=== PATIENT | female | born 1955 | race Caucasian/White ===

== ENCOUNTER → 2018-04-09 13:20 | Outpatient (CLI) | payer OTHER, SELFPAY ==
--- NOTE | 2018-04-09 13:25 | DI.MG.S_ITS ---
BILATERAL DIGITAL SCREENING MAMMOGRAM 3D/2D WITH CAD: 04/09/2018 CLINICAL: Routine screening. Comparison is made to exam dated: 09/26/2006 [facility]. There are scattered fibroglandular elements in both breasts. Current study was also evaluated with a Computer Aided Detection (CAD) system. No significant masses, calcifications, or other findings are seen in either breast. There has been no significant interval change. IMPRESSION: NEGATIVE There is no mammographic evidence of malignancy. A 1 year screening mammogram is recommended. This exam was interpreted at Station ID: [id number]. NOTE: For mammograms, a report in lay terms will be sent to the patient. Approximately 15% of breast malignancies will not be visualized mammographically. In the management of a palpable breast mass, a negative mammogram must not discourage biopsy of a clinically suspicious lesion. Electronically Signed By: Osvaldo rosas/nicole:04/09/2018 17:33:06 letter sent: Normal Exam ACR BI-RADS Category 1: Negative [id number]
== END ==
PROVIDERS: Visit Provider Nurse Practitioner Family
DX: Z12.31 Encounter for screening mammogram for malignant neoplasm of breast (principal)
CPT/HCPCS: 77063; 77067

== ENCOUNTER → 2019-01-17 09:04 | Outpatient (CLI) | payer OTHER, SELFPAY ==
[2019-01-17 09:41] LABS: Add Manual Diff / Slide Review NO; Basophils Absolute Auto 0 /uL (0-100); Basophils Percent Auto 0.7 % (0-2); Eosinophils Absolute Auto 100 /uL (0-450); Eosinophils Percent Auto 1.4 % (2-4); Hematocrit 42.1 % (36-46); Hemoglobin 14.2 g/dL (12.0-16.0); Lymphocytes Absolute Auto 1500 /uL (1100-4500); Lymphocytes Percent Auto 21.1 % (25-40); Mean Corpuscular HGB Conc 33.7 % (30-36); Monocytes Absolute Auto 500 /uL (0-900); Monocytes Percent Auto 7.1 % (3-14); Neutrophils Absolute Auto 4900 /uL (1500-7000); Neutrophils Percent Auto 69.7 % (50-75); Platelet Count 200 X10^3/uL (150-400); Red Blood Cell Count 4.74 X10^6/uL (4.0-5.2); Red Cell Distribution Width 13.3 % (11.6-14.8)
[2019-01-17 09:49] LABS: Alanine Aminotransferase 15 IU/L (<35); Albumin 4.7 g/dL (3.5-5.0); Albumin Globulin Ratio 1.9 (1.0-2.8); Alkaline Phosphatase 58 U/L (38-126); Aspartate Aminotransferase 20 IU/L (14-36); BUN Creatinine Ratio 15.6 (6-22); Bilirubin Total 1.6 mg/dL (0.2-1.3); Blood Urea Nitrogen 14 mg/dL (7-17); Calcium 9.4 mg/dL (8.4-10.2); Carbon Dioxide 29 mmol/L (22-32); Chloride 104 mmol/L (98-107); Estimated Glomerular Filt Rate > 60.0 mL/min (>60); Globulin 2.5 g/dL (1.7-4.1); Glucose 97 mg/dL (80-110); HEMOLYSIS < 15 (0-50); Potassium 4.1 mmol/L (3.4-5.1); Sodium 142 mmol/L (137-145); Total Protein 7.2 g/dL (6.3-8.2)
[2019-01-17 10:38] LABS: Thyroid Stimulating Hormone 1.14 uIU/mL (0.47-4.68)
== END ==
PROVIDERS: Visit Provider Psychiatry & Neurology Psychiatry
DX: F20.0 Paranoid schizophrenia (principal)
CPT/HCPCS: 36415; 80053; 84439; 84443; 85025

== ENCOUNTER → 2022-05-20 08:40 | Outpatient (CLI) | payer MEDICARE, OTHER, SELFPAY ==
[2022-05-20 10:02] LABS: Lithium < 0.2 mmol/L (0.6-1.2)
== END ==
PROVIDERS: PCP Family Medicine; Referring Provider Psychiatry & Neurology Psychiatry; Visit Provider Psychiatry & Neurology Psychiatry
DX: F20.0 Paranoid schizophrenia (principal); Z79.899 Other long term (current) drug therapy
CPT/HCPCS: 36415; 80178

== ENCOUNTER → 2022-08-10 14:46 | Outpatient (CLI) | payer MEDICARE, OTHER, SELFPAY ==
--- NOTE | 2022-08-10 14:48 | DI.RAD.S_ITS ---
PROCEDURE: XR CHEST 2V INDICATIONS: Cough x 11 days with dyspnea TECHNIQUE: 2 views of the chest were acquired. COMPARISON: None. FINDINGS: Surgical changes and devices: None. Lungs and pleura: Lungs are clear. No pleural effusions or pneumothorax. Mediastinum: Mediastinal contours are normal. Heart size is normal. Bones and chest wall: No suspicious bony abnormalities. Soft tissues appear unremarkable. IMPRESSION: No acute cardiopulmonary process. Dictated by: Torsten Brandon M.D. on 08/10/2022 at 15:05 Approved by: Torsten Brandon M.D. on 08/10/2022 at 15:06
== END ==
PROVIDERS: PCP Family Medicine; Referring Provider Physician Assistant; Visit Provider Physician Assistant
DX: R05.9 Cough, unspecified (principal)
CPT/HCPCS: 71046

== ENCOUNTER → 2023-02-23 07:45 | Outpatient (CLI) | payer MEDICARE, OTHER, SELFPAY ==
[2023-02-23 10:19] LABS: Alanine Aminotransferase 27 IU/L (<35); Albumin 4.2 g/dL (3.5-5.0); Albumin Globulin Ratio 1.5 (1.0-2.8); Alkaline Phosphatase 80 U/L (38-126); Aspartate Aminotransferase 27 IU/L (14-36); Bilirubin Total 0.9 mg/dL (0.2-1.3); Blood Urea Nitrogen 19 mg/dL (7-17); Calcium 9.2 mg/dL (8.4-10.2); Carbon Dioxide 28 mmol/L (22-32); Chloride 101 mmol/L (98-107); Cholesterol 165 mg/dL (140-199); Estimated Glomerular Filt Rate > 60 mL/min (>60); Globulin 2.8 g/dL (1.7-4.1); Glucose 113 mg/dL (80-110); HDL Cholesterol 59 mg/dL (40-60); HEMOLYSIS < 15 (0-50); LDL Cholesterol Calculated 92 mg/dL (<100); Potassium 4.1 mmol/L (3.4-5.1); Sodium 137 mmol/L (137-145); Triglycerides 72 mg/dL (35-150)
[2023-02-23 10:44] LABS: Hemoglobin A1C% w Est Avg Glu 5.5 % (4.0-6.0)
[2023-02-23 21:04] LABS: Lithium < 0.2 mmol/L (0.6-1.2)
[2023-02-23 21:06] LABS: TSH w/ Reflex to FT4 1.27 uIU/mL (0.47-4.68)
== END ==
PROVIDERS: PCP Family Medicine; Referring Provider Psychiatry & Neurology Psychiatry; Visit Provider Psychiatry & Neurology Psychiatry
DX: Z79.899 Other long term (current) drug therapy (principal); F20.0 Paranoid schizophrenia
CPT/HCPCS: 36415; 80053; 80061; 80178; 83036; 84443

== ENCOUNTER 2023-04-24 11:46 | Emergency (ER) | payer MEDICARE, OTHER, SELFPAY ==
[2023-04-24 12:04] VITALS: BP 162/74; PULSE 90; RESP 18; TEMP 36.3; O2SAT 99
--- NOTE | 2023-04-24 12:46 | ED.UPPEXIN ---
HPI - Extremity Injury (Upper) General Chief Complaint: Extremity Injury, Upper Stated Complaint: fall, L arm fracture, lots of pain Time Seen by Provider: 04/24/23 12:23 Source: patient Mode of arrival: Ambulatory Limitations: no limitations History of Present Illness HPI narrative: 67-year-old female who comes in with complaint of known proximal humeral fracture. Patient presents with her discharge paperwork from [facility]. Was seen was placed in a coaptation splint. Patient has had quite a bit of swelling. She states she has had some numbness tingling and increased pain particularly with trying to get up and down from a seated position. She can flex her wrist and fingers without issue. She states no new weakness. She has been taking [place] 1 tablet every 6 hours or so. She states it was helpful initially. She has had some increased swelling. Patient has been referred to orthopedic surgery but has not seen them. She denies any other falls or injuries. Related Data Home Medications Medication Instructions Recorded Confirmed cholecalciferol (vitamin D3) 10 10 mcg PO DAILY 12/16/19 08/10/22 mcg (400 unit) capsule Probiotic PO DAILY 03/09/22 08/10/22 Previous Rx's Medication Instructions Recorded albuterol sulfate 90 mcg/actuation 2 puff inhalation Q4-6H PRN 08/10/22 aerosol inhaler shortness of breath or wheezing #6.7 grams azithromycin 250 mg tablet See Rx Instructions PO .COMPLEX #6 08/10/22 tabs inhalational spacing device #10 ea 08/10/22 (Aerochamber MV spacer) lithium carbonate 300 mg capsule 600 mg (2 x 300 mg) PO BEDTIME 09/21/22 Mood stabilization #180 caps aripiprazole 20 mg tablet 20 mg PO DAILY #30 tabs 02/15/23 quetiapine 50 mg tablet 50 mg PO BEDTIME PRN sleep #30 tabs 02/15/23 hydrocodone 5 mg-acetaminophen 325 1 tab PO QID PRN pain #10 tabs 04/24/23 mg tablet Allergies Allergy/AdvReac Type Severity Reaction Status Date / Time Penicillins Allergy Hives Verified 08/10/22 14:14 Review of Systems Review of Systems ROS Unobtainable: All systems reviewed & are unremarkable except as noted in HPI and below Patient History Medical History (Updated 04/24/23 @ 14:26 by Lidia Saunders DO) Segmental and somatic dysfunction of abdomen and other regions Segmental and somatic dysfunction of sacral region Pelvic somatic dysfunction Segmental and somatic dysfunction of lumbar region Segmental and somatic dysfunction of thoracic region Cervical somatic dysfunction Cranial somatic dysfunction Foot pain, right Stiff neck Chronic headaches Obesity Schizophrenia, paranoid type Mixed hyperlipidemia (04/05/16) Surgical History Status post delivery Status post bunionectomy Family History Brother Age: 61 Diabetes mellitus Father Age: 91 Type 2 diabetes mellitus Social History Smoking Status: Never smoker Smoking Status: Never smoker alcohol intake frequency: holidays/special occasions only Alcohol type: wine Substance Use Type: does not use Exam Narrative Exam Narrative: GENERAL: Alert and oriented x three, obese female in mild distress. HEENT: Head normocephalic, atraumatic, EOMI, pupils reactive, face symmetric, moist mucous membranes NECK: Supple, full range of motion CARDIOVASCULAR: Regular rate and rhythm without murmurs, rubs or gallops. RESPIRATORY: Breath sounds equal bilaterally, no wheezes rales or rhonchi. ABDOMEN: Soft, nontender. Normoactive bowel sounds all 4 quadrants. No guarding or rebound, rigidity, no mass : No CVA tenderness EXTREMITIES: Normal range of motion, no clubbing. Neurovascularly intact. Patient's left upper extremities and coapt splint proximally 120?. She is quite swollen. She is 2+ radial pulse. Cap refill less than 2 seconds in all 5 fingers. She is sensation to light touch in all 5 fingers with normal flexion, extension fingers, flexion-extension of the wrist. She can make okay sign and has equal waistband setter lockstitch bilaterally. Patient's DANTE wrap is quite tight, she has not adjusted it at home. DANTE wrap was removed. Skin underneath appears intact without any breakdown. Patient rewraped and placed in larger sling and has had improvement in discomfort. NEUROLOGICAL: Cranial nerves II through XII grossly intact. Moving all extremities SKIN: Warm, dry, no petechiae, no rashes or lesions. Initial Vital Signs Initial Vital Signs: Vital Signs Temperature 97.3 F L 04/24/23 12:04 Pulse Rate 90 04/24/23 12:04 Respiratory Rate 18 04/24/23 12:04 Blood Pressure 162/74 H 04/24/23 12:04 Pulse Oximetry 99 04/24/23 12:04 Oxygen Delivery Method Room Air 04/24/23 12:04 Course Orders Ordered: Discontinued Medications Hydrocodone Bitart/Acetaminophen (Hydrocodone/Acet 5/325 Tablet) 1 tab PO NOW ONE Stop: 04/24/23 13:07 Last Admin: 04/24/23 13:10 Dose: 1 tab Documented By: ABHINAV Vital Signs Vital signs: Vital Signs - 8 hr 04/24/23 12:04 Temperature 97.3 F L Pulse Rate 90 Respiratory Rate 18 Blood Pressure 162/74 H Pulse Oximetry 99 Oxygen Delivery Method Room Air MDM - Extremity Injury (Upper) Imaging Data Extremity x-ray #1: Radiologist's Impression: Close Humerus X-Ray (Signed) Ashwin Ward - 04/24/23 Chest X-Ray (Signed) Torsten Brandon - 08/10/22 Mammogram Screening (Signed) Osvaldo Lujan - 04/09/18 [place] [address] XRay Report Signed Patient: Maria Victoria Smith MR#: [id number] : 1955 Acct:[id number] Age/Sex: 67 / F Date of Service: 04/24/23 Loc: ED Accession Number: [id number] Procedure: XR humerus LT 2V Ordering Provider: Lidia Saunders D.O. PROCEDURE: XR HUMERUS LT 2V INDICATIONS: proxim humeral fx. last week, increased pain, TECHNIQUE: 2 views of the humerus were acquired. COMPARISON: [facility], , XR HUMERUS LEFT, 04/20/2023, 14:15. FINDINGS: Bones: Unchanged alignment of angulated displaced comminuted fracture of the proximal humerus extending to the humeral neck and minimally into the humeral head. No suspicious bony lesions. Soft tissues: No suspicious soft tissue calcifications. IMPRESSION: Unchanged alignment of comminuted proximal humeral fracture Dictated by: Ashwin Ward M.D. on 04/24/2023 at 14:04 Approved by: Ashwin Ward M.D. on 04/24/2023 at 14:04 MDM Narrative Medical decision making narrative: 59-year-old female with known humeral fracture in a coaptation splint, Dante wrap was quite tight and patient has quite a bit of swelling. She also was in a sling and was positioned in a way that her hand was hanging down and likely increasing her swelling as well. Dante wrap was removed, patient was rewrapped and had improvement in his symptoms. Splint itself did not seem particularly tight nurse skin breakdown appreciated. Patient is neurovascularly intact pre and post. Was placed in a larger sling which also gave her some better support and had improvement in her pain as well. She has been taking [place] 1 tablet every 6 hours with some improvement in pain as well. Images were repeated although I do not have her priors for comparison. xray imaging shows not major changes to alignment per report. I do not have access to patient's x-ray imaging at [facility]. Patient is neurovascularly intact afterwards. On recheck patient feels much improved with her sling replaced and splint rewrapped. Discharge Plan Departure Patient Disposition: Home Clinical Impression: Proximal humeral fracture Instructions: DI for Humeral Fracture Activity Restrictions/Additional Instructions: Follow up with Orthopedic surgery, please call today to set up a follow up appointment. Contact information is included below. You may continue with [place] 1 tablet every 6 hours as needed for pain. Refill sent to [facility]. Splint Care: Keep splint clean and dry. Elevated affected body part to decrease swelling. OK to use ice pack on the affected body part. Use for 15-20 minutes each time, for 5-6x per day. If you develop worsening pain, numbness, tingling, discoloration of the affected body part, loosen the splint by loosening the DANTE wrap, and either see your doctor for an urgent re-assessment, or return to the Emergency Department. Return to the Emergency Department for any new or worsening symptoms. Prescriptions: New hydrocodone-acetaminophen 5-325 mg tablet 1 tab PO QID PRN (Reason: pain) Qty: 10 0RF No Action (DME) Aerochamber MV Spacer See Rx Instructions .Route Qty: 10 0RF Rx Instructions: As directed albuterol sulfate 90 mcg/actuation HFA aerosol inhaler 2 puff inhalation Q4-6H PRN (Reason: shortness of breath or wheezing) Qty: 6.7 0RF azithromycin 250 mg tablet See Rx Instructions PO .COMPLEX Qty: 6 0RF Rx Instructions: For 250 mg dose pack: take 500 mg today (day 1), then 250 mg for 4 days (days 2-5) PO Probiotic PO DAILY aripiprazole 20 mg tablet 20 mg PO DAILY Qty: 30 3RF quetiapine 50 mg tablet 50 mg PO BEDTIME PRN (Reason: sleep) Qty: 30 3RF cholecalciferol (vitamin D3) 10 mcg (400 unit) capsule 10 mcg PO DAILY Rx Instructions: 500 IU per day lithium carbonate 300 mg capsule 600 mg PO BEDTIME Qty: 180 3RF Rx Instructions: Dose change. Please cancel previous rxs for this medication. Referrals: Keegan Aguilar MD [Physician] - Jonathan Azar DO [Primary Care Provider] - Stand Alone Forms: Patient Portal/API
--- NOTE | 2023-04-24 13:05 | DI.RAD.S_ITS ---
PROCEDURE: XR HUMERUS LT 2V INDICATIONS: proxim humeral fx. last week, increased pain, TECHNIQUE: 2 views of the humerus were acquired. COMPARISON: [facility], CR, XR HUMERUS LEFT, 04/20/2023, 14:15. FINDINGS: Bones: Unchanged alignment of angulated displaced comminuted fracture of the proximal humerus extending to the humeral neck and minimally into the humeral head. No suspicious bony lesions. Soft tissues: No suspicious soft tissue calcifications. IMPRESSION: Unchanged alignment of comminuted proximal humeral fracture Dictated by: Ashwin Ward M.D. on 04/24/2023 at 14:04 Approved by: Ashwin Ward M.D. on 04/24/2023 at 14:04
--- NOTE | 2023-04-24 13:05 | PC.NURSE ---
With Dr Saunders, took down devendra bandage, assessed skin for breakdown from orthoglass and reapplied devendra wrap. Changed out sling for new sling that supports hand fully. Pulse present, CMS intact.
[2023-04-24] MEDS: HYDROCODONE/ACET 5/325 TABLET 1 TAB PO (13:10)
[2023-04-24 14:44] VITALS: BP 132/71; PULSE 55; RESP 18; O2SAT 96
== END 2023-04-24 14:45 | disposition home or self-care (01) ==
PROVIDERS: Emergency Provider Emergency Medicine; PCP Family Medicine
DX: S42.202A Unspecified fracture of upper end of left humerus, initial encounter for closed fracture (principal); X58.XXXA Exposure to other specified factors, initial encounter
CPT/HCPCS: 73060; 99283

== ENCOUNTER → 2023-06-14 08:54 | Outpatient (CLI) | payer MEDICARE, OTHER, SELFPAY ==
[2023-06-14 10:10] LABS: Lithium 0.4 mmol/L (0.6-1.2)
== END ==
PROVIDERS: PCP Family Medicine; Referring Provider Psychiatry & Neurology Psychiatry; Visit Provider Psychiatry & Neurology Psychiatry
DX: F20.0 Paranoid schizophrenia (principal); Z79.899 Other long term (current) drug therapy
CPT/HCPCS: 36415; 80178

== ENCOUNTER → 2023-06-20 09:53 | Outpatient (CLI) | payer MEDICARE, OTHER, SELFPAY ==
[2023-06-20 10:57] LABS: Lithium < 0.2 mmol/L (0.6-1.2)
== END ==
PROVIDERS: PCP Family Medicine; Referring Provider Psychiatry & Neurology Psychiatry; Visit Provider Psychiatry & Neurology Psychiatry
DX: F20.0 Paranoid schizophrenia (principal); Z79.899 Other long term (current) drug therapy
CPT/HCPCS: 36415; 80178

== ENCOUNTER → 2023-08-09 07:50 | Outpatient (CLI) | payer MEDICARE, OTHER, SELFPAY ==
[2023-08-09 09:24] LABS: Lithium 0.5 mmol/L (0.6-1.2)
== END ==
LOC: LAB 07:51
PROVIDERS: PCP Family Medicine; Referring Provider Psychiatry & Neurology Psychiatry; Visit Provider Psychiatry & Neurology Psychiatry
DX: F20.0 Paranoid schizophrenia (principal); Z79.899 Other long term (current) drug therapy
CPT/HCPCS: 36415; 80178

== ENCOUNTER → 2023-12-12 07:46 | Outpatient (CLI) | payer MEDICARE, OTHER, SELFPAY ==
[2023-12-12 08:30] LABS: Lithium 0.9 mmol/L (0.6-1.2)
[2023-12-12 09:01] LABS: TSH w/ Reflex to FT4 1.84 uIU/mL (0.47-4.68)
[2023-12-12 09:06] LABS: Alanine Aminotransferase 28 IU/L (<35); Albumin Globulin Ratio 1.6 (1.0-2.8); Alkaline Phosphatase 97 U/L (38-126); Aspartate Aminotransferase 26 IU/L (14-36); BUN Creatinine Ratio 13.4 (6-22); Bilirubin Total 1.2 mg/dL (0.2-1.3); Blood Urea Nitrogen 11 mg/dL (7-17); Calcium 9.2 mg/dL (8.4-10.2); Carbon Dioxide 27 mmol/L (22-32); Chloride 104 mmol/L (98-107); Cholesterol 175 mg/dL (140-199); Estimated Glomerular Filt Rate > 60 mL/min (>60); Globulin 2.5 g/dL (1.7-4.1); Glucose 105 mg/dL (80-110); HDL Cholesterol 61 mg/dL (40-60); HEMOLYSIS < 15 (0-50); LDL Cholesterol Calculated 89 mg/dL (<100); Potassium 3.8 mmol/L (3.4-5.1); Sodium 135 mmol/L (137-145); Total Protein 6.5 g/dL (6.3-8.2); Triglycerides 123 mg/dL (35-150)
== END ==
PROVIDERS: PCP Family Medicine; Referring Provider Psychiatry & Neurology Psychiatry; Visit Provider Psychiatry & Neurology Psychiatry
DX: Z79.899 Other long term (current) drug therapy (principal); F20.0 Paranoid schizophrenia; E88.810 Metabolic syndrome; E88.818 Other insulin resistance
CPT/HCPCS: 36415; 80053; 80061; 80178; 84443

== ENCOUNTER → 2024-02-28 14:25 | Outpatient (CLI) | payer MEDICARE, OTHER, SELFPAY | PROVIDERS: PCP Family Medicine; Referring Provider Psychiatry & Neurology Psychiatry; Visit Provider Psychiatry & Neurology Psychiatry | DX: Z79.899 Other long term (current) drug therapy (principal); F20.0 Paranoid schizophrenia | CPT/HCPCS: 36415 ==

== ENCOUNTER → 2024-12-04 09:03 | Outpatient (CLI) | payer MEDICARE, OTHER, SELFPAY ==
[2024-12-04 09:39] LABS: Add Manual Diff / Slide Review NO; Hematocrit 39.7 % (36-46); Hemoglobin 13.4 g/dL (12.0-16.0); Lymphocytes Absolute Auto 1900 /uL (1100-4500); Mean Corpuscular HGB Conc 33.8 % (30-36); Mean Corpuscular Hemoglobin 29.5 PG (26-34); Mean Corpuscular Volume 87.3 fL (80-100); Platelet Count 209 X10^3/uL (150-400)
[2024-12-04 09:56] LABS: Alanine Aminotransferase 20 IU/L (<35); Albumin 4.5 g/dL (3.5-5.0); Albumin Globulin Ratio 1.7 (1.0-2.8); Alkaline Phosphatase 78 U/L (38-126); Blood Urea Nitrogen 13 mg/dL (7-17); Calcium 9.6 mg/dL (8.4-10.2); Carbon Dioxide 29 mmol/L (22-32); Chloride 104 mmol/L (98-107); Estimated Glomerular Filt Rate > 60 mL/min (>60); Globulin 2.6 g/dL (1.7-4.1); Glucose 107 mg/dL (70-99); Potassium 4.3 mmol/L (3.4-5.1); Sodium 138 mmol/L (137-145); Total Protein 7.1 g/dL (6.3-8.2)
[2024-12-04 09:57] LABS: HEMOLYSIS 94 (0-50); Lithium < 0.2 mmol/L (0.6-1.2)
[2024-12-04 10:30] LABS: TSH w/ Reflex to FT4 1.42 uIU/mL (0.47-4.68)
== END ==
PROVIDERS: PCP Family Medicine; Referring Provider Psychiatry & Neurology Psychiatry; Visit Provider Psychiatry & Neurology Psychiatry
DX: F20.0 Paranoid schizophrenia (principal); Z79.899 Other long term (current) drug therapy
CPT/HCPCS: 36415; 80053; 80178; 84443; 85025